=== PATIENT | male | born 1940 | race African-American/Black ===

== ENCOUNTER 2022-01-07 20:58 | Emergency (ER) | payer OTHER ==
[~2022-01-07] VITALS: Ht 172.7 cm; Wt 99.8 kg
[~2022-01-07 20:58] MED LIST: HYDR-4623 PO; HYDR1TAB97 PO; OMEP20CA74 PO; ONDA-144 PO; OXYB5SYP4 PO; TAMS0.4C36 PO
[2022-01-07] MEDS ORDERED: DEXTROSE 10% 250 ML IV ONE (22:00)
[2022-01-07 23:15] LABS: Alanine Aminotransferase 17 U/L (16-61); Albumin 3.4 g/dL (3.4-5.0); Anion Gap 14 (5-15); Aspartate Aminotransferase 20 U/L (15-37); BUN/Creatinine Ratio 27.7; Blood Urea Nitrogen 39 mg/dL (7-18); Carbon Dioxide 16 mmol/L (21-32); Chloride 104 mmol/L (98-107); GFR African American 62 mL/min; GFR Non-African American 51 mL/min; Glucose 143 mg/dL (74-106); Magnesium 2.6 mg/dL (1.6-2.6); Potassium 5.5 mmol/L (3.5-5.1); Sodium 134 mmol/L (136-145)
[2022-01-07 23:23] LABS: Alkaline Phosphatase 89 U/L (45-117); Bilirubin, Total 0.8 mg/dL (0.2-1.0); Total Protein 7.8 g/dL (6.4-8.2)
[2022-01-08 00:37] LABS: Basophils # (auto) 0.1 10 ^3/uL (0-0.2); Basophils % (auto) 0.9 % (0.0-2.0); Eosinophils # (auto) 0.2 10 ^3/uL (0-0.8); Eosinophils % (auto) 2.6 % (0.0-7.0); Hematocrit 32.3 % (41.0-53.0); Hemoglobin 10.9 g/dL (13.5-17.5); Lymphocytes # (auto) 1.9 10 ^3/uL (0.4-5.4); Lymphocytes % (auto) 22.1 % (10.0-50.0); Mean Corpuscular Hgb Conc. 33.7 g/dL (32.0-36.0); Mean Corpuscular Volume 92.1 fL (80.0-100.0); Monocytes # (auto) 0.8 10 ^3/uL (0-1.3); Neutrophils # (auto) 5.7 10 ^3/uL (1.6-8.6); Neutrophils % (auto) 65.4 % (37.0-80.0); Nucleated Red Blood Cells % 0.2 %; Red Blood Cells 3.51 10^6/uL (4.5-5.90); White Blood Cell 8.8 10^3/uL (4.4-10.8)
[2022-01-08 00:46] LABS: Urine Bacteria FEW /hpf (None Seen); Urine Blood Negative /uL (Negative); Urine Hyaline Cast FEW /lpf (0 - 2); Urine Specific Gravity 1.019 (1.001-1.035); Urine WBC 1 /hpf (0 - 3)
[2022-01-08] MEDS ORDERED: SODIUM CHLORIDE 0.9% 500 ML IV ONE (03:00)
[2022-01-08] MEDS ORDERED: SODIUM BICARBONATE 8.4 % INJ 50ML VIAL IV ONE (10:45)
[2022-01-08] MEDS ORDERED: CALCIUM CHL 100MG/ML 1,000 MG in D5W 5% 100 ML IV ONE (10:45)
[2022-01-08] MEDS ORDERED: FUROSEMIDE 40 MG/4 ML VIAL IV ONE (10:45)
[2022-01-08 15:32] VITALS: BP 118/66
[2022-01-08 16:17] LABS: Anion Gap 15 (5-15); Blood Urea Nitrogen 27 mg/dL (7-18); Calcium 8.9 mg/dL (8.5-10.1); Carbon Dioxide 16 mmol/L (21-32); Chloride 108 mmol/L (98-107); GFR African American 88 mL/min; GFR Non-African American 73 mL/min; Glucose 59 mg/dL (74-106); Potassium 4.5 mmol/L (3.5-5.1); Sodium 139 mmol/L (136-145)
== END 2022-01-09 16:08 | disposition home or self-care (01) ==
LOC: EDUNIT# 20:58 → EDBD 20:58 → ER 21:14
DX: E86.0 Dehydration (principal); E46 Unspecified protein-calorie malnutrition; I10 Essential (primary) hypertension; Z68.33 Body mass index [BMI] 33.0-33.9, adult; Z79.899 Other long term (current) drug therapy; Z88.8 Allergy status to other drugs, medicaments and biological substances; Z20.822 Contact with and (suspected) exposure to COVID-19
CPT/HCPCS: 36415; 70450; 71045; 80048; 80053; 81001; 83735; 83880; 84484; 85025; 87426; 96361; 96365; 96375; 99285; J1940; J7060; 93005

== ENCOUNTER 2022-03-07 21:35 | Inpatient (IN) | payer OTHER ==
[~2022-03-07] VITALS: Ht 167.6 cm; Wt 95.1 kg
[2022-03-07 23:09] LABS: Basophils # (auto) 0.1 10 ^3/uL (0-0.2); Basophils % (auto) 0.9 % (0.0-2.0); Eosinophils # (auto) 0.3 10 ^3/uL (0-0.8); Eosinophils % (auto) 3.7 % (0.0-7.0); Hematocrit 37.2 % (41.0-53.0); Hemoglobin 11.9 g/dL (13.5-17.5); Lymphocytes # (auto) 2.6 10 ^3/uL (0.4-5.4); Lymphocytes % (auto) 28.2 % (10.0-50.0); Mean Corpuscular Hemoglobin 30.4 pg (28.0-32.0); Monocytes # (auto) 0.9 10 ^3/uL (0-1.3); Monocytes % (auto) 9.4 % (0.0-12.0); Neutrophils # (auto) 5.3 10 ^3/uL (1.6-8.6); Neutrophils % (auto) 57.8 % (37.0-80.0); Nucleated Red Blood Cells % 0.1 %; Red Blood Cells 3.92 10^6/uL (4.5-5.90); Red Cell Distribution Width 13.5 % (11.8-14.3); White Blood Cell 9.1 10^3/uL (4.4-10.8)
[2022-03-07 23:32] LABS: Albumin 3.4 g/dL (3.4-5.0); BUN/Creatinine Ratio 16.9; Calcium 8.8 mg/dL (8.5-10.1)
[2022-03-07 23:33] LABS: Bilirubin, Total 0.7 mg/dL (0.2-1.0); Total Protein 7.5 g/dL (6.4-8.2)
[2022-03-07 23:37] LABS: Potassium 5.9 mmol/L (3.5-5.1)
[2022-03-08] MEDS ORDERED: SODIUM BICARBONATE 650 MG TAB PO ONE (01:15)
[2022-03-08] MEDS ORDERED: cefTRIAXone 1GM/50ML D5W 50 ML IV ONE (01:15)
[2022-03-08] MEDS ORDERED: AZITHROMYCIN 500MG/ 250ML 250 ML IV ONE (01:15)
[2022-03-08] MEDS ORDERED: HYDROcodone-ACET 5/325MG TAB PO ONE (01:30)
[2022-03-08 03:58] LABS: Albumin 3.4 g/dL (3.4-5.0); Calcium 8.5 mg/dL (8.5-10.1); Potassium 5.2 mmol/L (3.5-5.1)
[2022-03-08 04:02] LABS: Bilirubin, Total 0.6 mg/dL (0.2-1.0); Total Protein 7.2 g/dL (6.4-8.2)
[2022-03-08] MEDS ORDERED: SODIUM CHLORIDE 0.9% 1,000 ML IV ONE ×2 (05:30→06:00)
[2022-03-08] MEDS ORDERED: ONDANSETRON HCL 4 MG/2 ML VIAL IV PRN (05:45)
[2022-03-08] MEDS ORDERED: MORPHINE SULFATE INJ 2 MG/ml SYRG IV PRN (05:45)
[2022-03-08] MEDS ORDERED: ACETAMINOPHEN 325 MG TAB PO PRN (05:45)
[2022-03-08] MEDS ORDERED: ALBUMIN 5% 250 ML IV ONE (05:45)
[2022-03-08] MEDS ORDERED: NITROGLYCERIN 0.4 MG SL TAB SL PRN (05:45)
[2022-03-08 08:50] LABS: Urine Bacteria FEW /hpf (None Seen); Urine Blood Negative /uL (Negative); Urine Hyaline Cast FEW /lpf (0 - 2); Urine Mucus FEW (None Seen); Urine Specific Gravity 1.019 (1.001-1.035); Urine WBC 6 /hpf (0 - 3)
[2022-03-08] MEDS: PANTOPRAZOLE 40 MG TAB PO SCH (09:42)
[2022-03-08] MEDS: cefTRIAXone 1GM/50ML D5W 50 ML IV SCH (09:42)
[2022-03-08] MEDS: SODIUM BICARBONATE 50ML VIAL 50 ML in SOD CHL 0.45% 1,000 ML IV SCH ×2 (11:46→21:16)
[2022-03-08] MEDS: AZITHROMYCIN 500MG/ 250ML 250 ML IV SCH (11:46)
[2022-03-08 20:20] VITALS: BP 100/32
[2022-03-08 22:00] VITALS: BP 111/48
[2022-03-08 22:43] LABS: Protein, Urine 10.3 mg/dL (0.0-11.9); Urine Bacteria NONE SEEN /hpf (None Seen); Urine Blood TRACE /uL (Negative); Urine Hyaline Cast FEW /lpf (0 - 2); Urine Specific Gravity 1.009 (1.001-1.035); Urine WBC 3 /hpf (0 - 3)
[2022-03-09] MEDS ORDERED: SENN-62 PO (00:26)
[2022-03-09] MEDS ORDERED: PANT1INJ3 PO (00:26)
[2022-03-09] MEDS ORDERED: FOLI1TAB6 PO (00:26)
[2022-03-09] MEDS ORDERED: HYDR10T OR (00:26)
[2022-03-09] MEDS ORDERED: ASPI1TAB20 PO (00:26)
[2022-03-09] MEDS ORDERED: CLOP75TA70 PO (00:26)
[2022-03-09] MEDS ORDERED: SPIR25TA8 PO (00:26)
[2022-03-09] MEDS ORDERED: ATOR40TA52 PO (00:26)
[2022-03-09] MEDS: SODIUM BICARBONATE 50ML VIAL 50 ML in SOD CHL 0.45% 1,000 ML IV SCH ×3 (03:03→19:21)
[2022-03-09 05:00] VITALS: BP 95/40
[2022-03-09 05:31] LABS: Basophils # (auto) 0.1 10 ^3/uL (0-0.2); Basophils % (auto) 0.9 % (0.0-2.0); Eosinophils # (auto) 0.4 10 ^3/uL (0-0.8); Eosinophils % (auto) 7.2 % (0.0-7.0); Hemoglobin 10.1 g/dL (13.5-17.5); Lymphocytes # (auto) 1.6 10 ^3/uL (0.4-5.4); Lymphocytes % (auto) 27.2 % (10.0-50.0); Mean Corpuscular Hemoglobin 30.7 pg (28.0-32.0); Mean Corpuscular Hgb Conc. 33.6 g/dL (32.0-36.0); Mean Corpuscular Volume 91.4 fL (80.0-100.0); Monocytes # (auto) 0.8 10 ^3/uL (0-1.3); Monocytes % (auto) 13.6 % (0.0-12.0); Neutrophils % (auto) 51.1 % (37.0-80.0); Nucleated Red Blood Cells % 0.2 %; Red Blood Cells 3.28 10^6/uL (4.5-5.90); Red Cell Distribution Width 13.3 % (11.8-14.3); White Blood Cell 5.8 10^3/uL (4.4-10.8)
[2022-03-09 05:50] LABS: Albumin 2.7 g/dL (3.4-5.0); Calcium 8.1 mg/dL (8.5-10.1); Potassium 4.1 mmol/L (3.5-5.1)
[2022-03-09 05:53] LABS: BUN/Creatinine Ratio 24.3; Bilirubin, Total 0.6 mg/dL (0.2-1.0); Total Protein 5.7 g/dL (6.4-8.2)
[2022-03-09 08:57] VITALS: BP 119/47
[2022-03-09] MEDS: PANTOPRAZOLE 40 MG TAB PO SCH (10:18)
[2022-03-09] MEDS: cefTRIAXone 1GM/50ML D5W 50 ML IV SCH (10:19)
[2022-03-09] MEDS: HYDROcodone-ACET 5/325MG TAB PO PRN ×3 (10:23→21:32)
[2022-03-09] MEDS: AZITHROMYCIN 500MG/ 250ML 250 ML IV SCH (11:03)
[2022-03-09 12:22] VITALS: BP 93/43
[2022-03-09 16:53] VITALS: BP 99/57
[2022-03-09 22:21] VITALS: BP 95/39
[2022-03-10] MEDS: SODIUM BICARBONATE 50ML VIAL 50 ML in SOD CHL 0.45% 1,000 ML IV SCH ×3 (02:31→21:57)
[2022-03-10 05:26] VITALS: BP 114/53
[2022-03-10 08:00] VITALS: BP 93/44
[2022-03-10] MEDS: cefTRIAXone 1GM/50ML D5W 50 ML IV SCH (09:36)
[2022-03-10] MEDS: PANTOPRAZOLE 40 MG TAB PO SCH (09:36)
[2022-03-10] MEDS: AZITHROMYCIN 500MG/ 250ML 250 ML IV SCH (10:24)
[2022-03-10] MEDS: HYDROcodone-ACET 5/325MG TAB PO PRN ×2 (10:24→23:29)
[2022-03-10 12:00] VITALS: BP 89/43
[2022-03-10 16:00] VITALS: BP 108/48
[2022-03-10] MEDS: MUPIROCIN 2% OINT 15gm or 22gm EACHNOSTRI SCH ×2 (16:36→21:57)
[2022-03-10 22:00] VITALS: BP 111/63
[2022-03-11 05:00] VITALS: BP 108/50
[2022-03-11] MEDS: SODIUM BICARBONATE 50ML VIAL 50 ML in SOD CHL 0.45% 1,000 ML IV SCH (06:53)
[2022-03-11] MEDS: cefTRIAXone 1GM/50ML D5W 50 ML IV SCH (08:33)
[2022-03-11 09:00] VITALS: BP 123/62
[2022-03-11] MEDS: AZITHROMYCIN 500MG/ 250ML 250 ML IV SCH (10:44)
[2022-03-11] MEDS: MUPIROCIN 2% OINT 15gm or 22gm EACHNOSTRI SCH (10:44)
[2022-03-11] MEDS: PANTOPRAZOLE 40 MG TAB PO SCH (10:44)
[2022-03-11 13:01] VITALS: BP 93/50
== END 2022-03-11 15:00 | disposition short-term general hospital (02) | DRG 871 ==
LOC: ER 21:35 → EDBD 21:35 → TELE 03-08 05:45 → TELE-EAST 03-08 20:17
PROVIDERS: ADMIT Nurse Practitioner; ATTEND Family Medicine
PROC: 05HA33Z Insertion of Infusion Device into Left Brachial Vein, Percutaneous Approach (ICD-10-PCS; principal; 2022-03-08)
PROC: B54NZZA Ultrasonography of Left Upper Extremity Veins, Guidance (ICD-10-PCS; 2022-03-08)
DX: A41.9 Sepsis, unspecified organism (principal); J18.9 Pneumonia, unspecified organism; N17.0 Acute kidney failure with tubular necrosis; J96.01 Acute respiratory failure with hypoxia; E43 Unspecified severe protein-calorie malnutrition; J98.11 Atelectasis; N39.0 Urinary tract infection, site not specified; D63.1 Anemia in chronic kidney disease; E11.22 Type 2 diabetes mellitus with diabetic chronic kidney disease; Z20.822 Contact with and (suspected) exposure to COVID-19; E87.5 Hyperkalemia; I12.9 Hypertensive chronic kidney disease with stage 1 through stage 4 chronic kidney disease, or unspecified chronic kidney disease; E66.01 Morbid (severe) obesity due to excess calories; E78.5 Hyperlipidemia, unspecified; F03.90 Unspecified dementia, unspecified severity, without behavioral disturbance, psychotic disturbance, mood disturbance, and anxiety; M79.606 Pain in leg, unspecified; I25.10 Atherosclerotic heart disease of native coronary artery without angina pectoris; A49.02 Methicillin resistant Staphylococcus aureus infection, unspecified site; N40.0 Benign prostatic hyperplasia without lower urinary tract symptoms; E86.0 Dehydration; E78.00 Pure hypercholesterolemia, unspecified; N18.2 Chronic kidney disease, stage 2 (mild); Z88.8 Allergy status to other drugs, medicaments and biological substances; Z80.3 Family history of malignant neoplasm of breast; Z68.38 Body mass index [BMI] 38.0-38.9, adult; Z95.5 Presence of coronary angioplasty implant and graft
CPT/HCPCS: 36415; 36600; 71045; 71250; 74176; 76775; 80053; 81001; 82306; 82378; 82570; 82805; 83605; 83690; 83880; 83970; 84100; 84154; 84156; 84300; 84484; 85025; 87081; 87086; 93005; 93306; 93970; 96361; 96365; 96366; 96367; 99291; G0378; J0696

== ENCOUNTER 2022-04-13 09:08 | Emergency (ER) | payer OTHER ==
[~2022-04-13] VITALS: Ht 177.8 cm; Wt 200.0 kg
[~2022-04-13 09:08] MED LIST changes: +ASPI1TAB20 PO; +ATOR40TA52 PO; +CLOP75TA70 PO; +FOLI1TAB6 PO; +HYDR10T OR; +PANT1INJ3 PO; +SENN-62 PO; +SPIR25TA8 PO
[2022-04-13 10:05] LABS: Basophils # (auto) 0.1 10 ^3/uL (0-0.2); Basophils % (auto) 1.2 % (0.0-2.0); Eosinophils # (auto) 0.4 10 ^3/uL (0-0.8); Eosinophils % (auto) 4.9 % (0.0-7.0); Hematocrit 35.9 % (41.0-53.0); Hemoglobin 11.9 g/dL (13.5-17.5); Lymphocytes # (auto) 3.1 10 ^3/uL (0.4-5.4); Lymphocytes % (auto) 40.1 % (10.0-50.0); Mean Corpuscular Hemoglobin 29.3 pg (28.0-32.0); Mean Corpuscular Hgb Conc. 33.1 g/dL (32.0-36.0); Mean Corpuscular Volume 88.6 fL (80.0-100.0); Monocytes # (auto) 0.8 10 ^3/uL (0-1.3); Monocytes % (auto) 10.2 % (0.0-12.0); Neutrophils # (auto) 3.4 10 ^3/uL (1.6-8.6); Neutrophils % (auto) 43.6 % (37.0-80.0); Nucleated Red Blood Cells % 0.1 %; Red Blood Cells 4.05 10^6/uL (4.5-5.90); Red Cell Distribution Width 14.1 % (11.8-14.3); White Blood Cell 7.8 10^3/uL (4.4-10.8)
[2022-04-13 10:35] LABS: Albumin 3.4 g/dL (3.4-5.0); Calcium 9.3 mg/dL (8.5-10.1); Magnesium 2.1 mg/dL (1.6-2.6); Potassium 3.8 mmol/L (3.5-5.1)
[2022-04-13 10:40] LABS: Bilirubin, Total 0.8 mg/dL (0.2-1.0); Total Protein 7.6 g/dL (6.4-8.2)
[2022-04-13 11:21] LABS: BUN/Creatinine Ratio 19.4
[2022-04-13 13:00] VITALS: BP 111/56
== END 2022-04-13 13:41 | disposition home or self-care (01) ==
LOC: EDBD 09:08 → ER 09:08
DX: R62.7 Adult failure to thrive (principal); I10 Essential (primary) hypertension; E11.9 Type 2 diabetes mellitus without complications; E78.5 Hyperlipidemia, unspecified; Z79.82 Long term (current) use of aspirin; Z79.899 Other long term (current) drug therapy; Z88.8 Allergy status to other drugs, medicaments and biological substances; Z91.018 Allergy to other foods
CPT/HCPCS: 36415; 71045; 74176; 80053; 82150; 83605; 83690; 83735; 84484; 85025; 93005

== ENCOUNTER 2022-04-25 13:38 | Inpatient (IN) | payer OTHER ==
[~2022-04-25] VITALS: Ht 172.7 cm; Wt 86.0 kg
[2022-04-25 14:57] LABS: Basophils # (auto) 0.1 10 ^3/uL (0-0.2); Basophils % (auto) 1.2 % (0.0-2.0); Eosinophils # (auto) 0.3 10 ^3/uL (0-0.8); Eosinophils % (auto) 3.2 % (0.0-7.0); Hematocrit 41.4 % (41.0-53.0); Lymphocytes # (auto) 3.7 10 ^3/uL (0.4-5.4); Lymphocytes % (auto) 35.8 % (10.0-50.0); Mean Corpuscular Hemoglobin 29.4 pg (28.0-32.0); Mean Corpuscular Hgb Conc. 31.3 g/dL (32.0-36.0); Mean Corpuscular Volume 93.7 fL (80.0-100.0); Monocytes # (auto) 1.5 10 ^3/uL (0-1.3); Monocytes % (auto) 14.2 % (0.0-12.0); Neutrophils # (auto) 4.8 10 ^3/uL (1.6-8.6); Neutrophils % (auto) 45.6 % (37.0-80.0); Nucleated Red Blood Cells % 0.1 %; Red Blood Cells 4.42 10^6/uL (4.5-5.90); Red Cell Distribution Width 15.2 % (11.8-14.3); White Blood Cell 10.5 10^3/uL (4.4-10.8)
[2022-04-25 15:27] LABS: Albumin 3.6 g/dL (3.4-5.0); Calcium 9.2 mg/dL (8.5-10.1); Potassium 4.4 mmol/L (3.5-5.1)
[2022-04-25 15:29] LABS: BUN/Creatinine Ratio 24.5
[2022-04-25 15:32] LABS: Total Protein 7.9 g/dL (6.4-8.2)
[2022-04-25] MEDS ORDERED: DEXTROSE (50%) 50ML SYRG IV ONE ×2 (16:30→20:15)
[2022-04-25] MEDS ORDERED: GOLYTELY 4L KIT PO ONE (17:30)
[2022-04-25] MEDS ORDERED: ONDANSETRON HCL 4 MG/2 ML VIAL IV ONE (18:30)
[2022-04-25] MEDS ORDERED: SODIUM CHLORIDE 0.9% 1,000 ML IV ONE (18:45)
[2022-04-25] MEDS ORDERED: dilTIAZem 25 MG/5 ML VIAL IV ONE (19:15)
[2022-04-25] MEDS ORDERED: dilTIAZem 125mg/125ml BAG KIT 125 ML IV ONE (20:00)
[2022-04-25] MEDS ORDERED: ONDANSETRON HCL 4 MG/2 ML VIAL IV PRN (22:15)
[2022-04-25] MEDS ORDERED: TEMAZEPAM 15 MG CAP PO PRN (22:15)
[2022-04-25] MEDS ORDERED: dilTIAZem 125mg/125ml BAG KIT 100 ML IV SCH (22:15)
[2022-04-25] MEDS ORDERED: NITROGLYCERIN 0.4 MG SL TAB SL PRN (22:15)
[2022-04-25] MEDS ORDERED: FLEET ENEMA(ADULT) 135 ML PR ONE (22:15)
[2022-04-25] MEDS ORDERED: MORPHINE SULFATE INJ 2 MG/ml SYRG IV PRN (22:15)
[2022-04-25] MEDS: TAMSULOSIN HYDROCHLORIDE 0.4 MG CAP PO SCH (23:07)
[2022-04-25] MEDS: DOCUSATE SOD 100 MG CAP PO SCH (23:07)
[2022-04-26] MEDS: guaiFENesin-DM 100/10mg/5ml SYR PO PRN ×2 (02:23→21:17)
[2022-04-26 06:29] LABS: Basophils # (auto) 0.1 10 ^3/uL (0-0.2); Basophils % (auto) 0.8 % (0.0-2.0); Eosinophils # (auto) 0.3 10 ^3/uL (0-0.8); Eosinophils % (auto) 3.4 % (0.0-7.0); Hematocrit 35.7 % (41.0-53.0); Lymphocytes # (auto) 2.6 10 ^3/uL (0.4-5.4); Lymphocytes % (auto) 33.1 % (10.0-50.0); Mean Corpuscular Hemoglobin 29.8 pg (28.0-32.0); Mean Corpuscular Hgb Conc. 33.7 g/dL (32.0-36.0); Mean Corpuscular Volume 88.2 fL (80.0-100.0); Monocytes % (auto) 12.1 % (0.0-12.0); Neutrophils % (auto) 50.6 % (37.0-80.0); Red Blood Cells 4.04 10^6/uL (4.5-5.90); Red Cell Distribution Width 14.3 % (11.8-14.3)
[2022-04-26 06:47] LABS: Albumin 3.1 g/dL (3.4-5.0); Calcium 8.9 mg/dL (8.5-10.1)
[2022-04-26 06:51] LABS: BUN/Creatinine Ratio 15.9; Total Protein 6.7 g/dL (6.4-8.2)
[2022-04-26] MEDS ORDERED: SODIUM CHLORIDE 0.9% 1,000 ML IV SCH (08:30)
[2022-04-26] MEDS ORDERED: SPIRONOLACTONE 25 MG TAB PO SCH (10:00)
[2022-04-26] MEDS: DOCUSATE SOD 100 MG CAP PO SCH ×2 (10:41→21:16)
[2022-04-26] MEDS: CLOPIDOGREL BISULFATE 75 MG TAB PO SCH (10:41)
[2022-04-26] MEDS: PANTOPRAZOLE 40 MG TAB PO SCH (10:42)
[2022-04-26] MEDS: ENOXAPARIN SOD 40 MG/0.4 ML SYRINGE SC SCH (10:42)
[2022-04-26] MEDS ORDERED: SODIUM CHLORIDE 0.9% 500 ML IV ONE (14:15)
[2022-04-26] MEDS: SODIUM CHLORIDE 0.9% 1,000 ML IV SCH (14:19)
[2022-04-26 17:00] VITALS: BP 107/54
[2022-04-26] MEDS: TAMSULOSIN HYDROCHLORIDE 0.4 MG CAP PO SCH (17:24)
[2022-04-26 20:00] VITALS: BP 103/49
[2022-04-26] MEDS: ATORVASTATIN 20 MG TAB PO SCH (21:15)
[2022-04-27 04:45] VITALS: BP 103/57
[2022-04-27] MEDS: SUCRALFATE 1 GM/10 ML ORAL SUSP PO SCH ×2 (06:38→17:59)
[2022-04-27] MEDS: SODIUM CHLORIDE 0.9% 1,000 ML IV SCH ×3 (06:43→13:54)
[2022-04-27 09:00] VITALS: BP 122/59
[2022-04-27] MEDS: METOPROLOL SUCCINATE XL 50 MG TAB PO SCH ×2 (10:00→13:26)
[2022-04-27] MEDS: DOCUSATE SOD 100 MG CAP PO SCH ×3 (10:00→21:53)
[2022-04-27] MEDS: ENOXAPARIN SOD 40 MG/0.4 ML SYRINGE SC SCH (10:11)
[2022-04-27] MEDS: FAMOTIDINE (10MG/ML) 2ML VL IV SCH ×2 (10:11→21:53)
[2022-04-27] MEDS: CLOPIDOGREL BISULFATE 75 MG TAB PO SCH (10:11)
[2022-04-27] MEDS: ACETAMINOPHEN 325 MG TAB PO PRN (10:12)
[2022-04-27] MEDS: PANTOPRAZOLE 40 MG TAB PO SCH (10:12)
[2022-04-27 13:00] VITALS: BP 127/64
[2022-04-27 16:46] VITALS: BP 118/76
[2022-04-27] MEDS: TAMSULOSIN HYDROCHLORIDE 0.4 MG CAP PO SCH (17:59)
[2022-04-27] MEDS: guaiFENesin-DM 100/10mg/5ml SYR PO PRN (18:21)
[2022-04-27 20:00] VITALS: BP 114/60
[2022-04-27] MEDS: ATORVASTATIN 20 MG TAB PO SCH (21:54)
[2022-04-27 22:00] VITALS: BP 114/60
[2022-04-28] MEDS: guaiFENesin-DM 100/10mg/5ml SYR PO PRN ×3 (03:35→21:46)
[2022-04-28] MEDS: SODIUM CHLORIDE 0.9% 1,000 ML IV SCH (04:10)
[2022-04-28 05:00] VITALS: BP 124/70
[2022-04-28] MEDS: SUCRALFATE 1 GM/10 ML ORAL SUSP PO SCH ×2 (06:40→18:08)
[2022-04-28 08:50] LABS: BUN/Creatinine Ratio 8.5; Calcium 8.3 mg/dL (8.5-10.1); Potassium 4.2 mmol/L (3.5-5.1)
[2022-04-28 09:00] VITALS: BP 129/77
[2022-04-28] MEDS: PANTOPRAZOLE 40 MG TAB PO SCH (10:02)
[2022-04-28] MEDS: CLOPIDOGREL BISULFATE 75 MG TAB PO SCH (10:03)
[2022-04-28] MEDS: FAMOTIDINE (10MG/ML) 2ML VL IV SCH ×2 (10:03→21:38)
[2022-04-28] MEDS: DOCUSATE SOD 100 MG CAP PO SCH ×2 (10:03→21:38)
[2022-04-28] MEDS: ENOXAPARIN SOD 40 MG/0.4 ML SYRINGE SC SCH (10:03)
[2022-04-28] MEDS: METOPROLOL SUCCINATE XL 50 MG TAB PO SCH (10:04)
[2022-04-28 11:57] VITALS: BP 125/65
[2022-04-28] MEDS: ACETAMINOPHEN 325 MG TAB PO PRN (14:00)
[2022-04-28 16:16] VITALS: BP 136/72
[2022-04-28] MEDS: TAMSULOSIN HYDROCHLORIDE 0.4 MG CAP PO SCH (18:07)
[2022-04-28] MEDS ORDERED: APIX5TAB PO (18:39)
[2022-04-28] MEDS: APIXABAN 5 MG TAB PO SCH (21:38)
[2022-04-28] MEDS: ATORVASTATIN 20 MG TAB PO SCH (21:39)
[2022-04-28 22:00] VITALS: BP 136/76
[2022-04-29 05:00] VITALS: BP 143/75
[2022-04-29] MEDS: SUCRALFATE 1 GM/10 ML ORAL SUSP PO SCH ×2 (06:03→17:01)
[2022-04-29] MEDS: guaiFENesin-DM 100/10mg/5ml SYR PO PRN ×2 (07:02→14:57)
[2022-04-29 08:00] VITALS: BP 129/77
[2022-04-29 09:13] VITALS: BP 119/71
[2022-04-29] MEDS: DOCUSATE SOD 100 MG CAP PO SCH (09:45)
[2022-04-29] MEDS: FAMOTIDINE (10MG/ML) 2ML VL IV SCH (09:45)
[2022-04-29] MEDS: APIXABAN 5 MG TAB PO SCH (09:45)
[2022-04-29] MEDS: METOPROLOL SUCCINATE XL 50 MG TAB PO SCH (09:46)
[2022-04-29 13:00] VITALS: BP 130/77
[2022-04-29] MEDS: ACETAMINOPHEN 325 MG TAB PO PRN (17:01)
[2022-04-29 17:06] VITALS: BP 126/76
[2022-04-29] MEDS: TAMSULOSIN HYDROCHLORIDE 0.4 MG CAP PO SCH (17:42)
[2022-04-29 18:06] VITALS: BP 151/73
== END 2022-04-29 21:23 | disposition short-term general hospital (02) | DRG 392 ==
LOC: EDBD 13:38 → ER 13:38 → TELE 22:21 → TELE-EAST 04-26 16:44
PROVIDERS: ADMIT Nurse Practitioner; ATTEND Internal Medicine Nephrology
PROC: 05H933Z Insertion of Infusion Device into Right Brachial Vein, Percutaneous Approach (ICD-10-PCS; principal; 2022-04-26)
PROC: B54MZZA Ultrasonography of Right Upper Extremity Veins, Guidance (ICD-10-PCS; 2022-04-26)
DX: K59.00 Constipation, unspecified (principal); N17.9 Acute kidney failure, unspecified; E11.649 Type 2 diabetes mellitus with hypoglycemia without coma; I48.91 Unspecified atrial fibrillation; E78.5 Hyperlipidemia, unspecified; I10 Essential (primary) hypertension; I25.10 Atherosclerotic heart disease of native coronary artery without angina pectoris; J43.8 Other emphysema; K21.9 Gastro-esophageal reflux disease without esophagitis; K76.89 Other specified diseases of liver; R00.0 Tachycardia, unspecified; Z20.822 Contact with and (suspected) exposure to COVID-19; N20.0 Calculus of kidney; N28.1 Cyst of kidney, acquired; Z80.3 Family history of malignant neoplasm of breast; Z95.5 Presence of coronary angioplasty implant and graft; I25.2 Old myocardial infarction; Z88.8 Allergy status to other drugs, medicaments and biological substances; Z91.018 Allergy to other foods; Z79.84 Long term (current) use of oral hypoglycemic drugs
CPT/HCPCS: 36415; 71250; 74176; 80048; 80053; 82962; 83605; 83690; 84484; 85025; 87040; 93005; 93306; 96361; 96365; 96366; 96372; 96375; 96376; 99291; G0378; J2405; J3490